=== PATIENT | male | born 1970 | race Caucasian/White ===

== ENCOUNTER 2016-06-09 17:38 | Emergency (ER) | payer OTHER ==
[~2016-06-09] VITALS: Ht 182.9 cm; Wt 84.8 kg
[~2016-06-09 17:38] MED LIST: ACYCLOVIR800 MG PO; AMOXICILLIN 50500 MG PO; ANTIVERT/2525 MG PO; APAP/BUTALBITAL1 TA1 PO; ASPIR-LOW81 MG PO; CIPRO 500MG TA500 MG PO; FLAGYL500 M1 PO; GABAPENTIN300 M1 PO; HYDROCODONE-APA1 TA2 PO; KEFLEX 500MG.500 MG PO; LORTAB 500 MG-71 TAB PO; MEDROL 4MG. DOSE4 MG PO; MELOXICAM15 MG PO; NEXIUM40 MG PO; NOMEDS *; NORCO 325 MG-51 TAB PO; PREDNISONE 20MG20 MG PO; RANEXA500 M1 PO; VICODIN 5/500 T1 TAB PO
[2016-06-09 18:00] LABS: URINE BILIRUBIN - DIPSTICK NEGATIVE (NEG); URINE BLOOD NEGATIVE (NEG)
[2016-06-09 18:11] LABS: HEMOGLOBIN 14.6 g/dL (14.1-18.0); LYMPH # 1.9 K/mm3 (0.7-4.5); LYMPH % 27.6 % (10-50)
--- NOTE | 2016-06-09 18:14 | Emergency Room Report ---
History of Present Illness Time Seen by [id number] Presenting Problem in Triage Pt arrived:Walked Presenting Problem:PT C/O LLQ ABD PAIN AND LOWER LEFT SIDED BACK PAIN X3 DAYS AND BURNING WITH URINATION Onset of symptoms date/time:/ or onset unknown for:MEDICAL HX UNKNOWN Treatment Prior to Arrival: [employer] Provided by: Sepsis Risk Assessment: Temp: 98.2 B/P: 135/71 MAP: 92 Pulse: 85 Resp: 16 Recent fever? N Clinical Suspician of Infection? N Mental Status: 1 - Regular (Normal Baseline) Sepsis Risk:Low Sepsis Risk Have you (or family members/close friends) recently traveled outside the [place]? N If Yes, where/when: Have you had exposure to infectious disease within the past month? N TB? Other? Specify: Comment The patient complains of LEFT lumbar back pain and LEFT lower quadrant pain. He says the back pain began first about 3 days ago at work. It increases with movement. He has a history of chronic back pain and takes Lortab 7.5 mg, but this pain is different. He has occasional tingling in his LEFT leg, which is not new. He has LEFT lower quadrant abdominal pain, but no vomiting or fever. He has chronic diarrhea since a cholecystectomy, unchanged. He had an episode of diverticulitis in November and says that this is not the same symptoms. Slight burning with urination, no gross hematuria. Urine seems darker than usual. The patient has a gastric sensitivity to nonsteroidal anti-inflammatory drugs but has no problem with intravenous Toradol. He does not have a true ALLERGY. He drove himself to the emergency department. ALLERGIES Coded Allergies: codeine (Mild, 09/17/15) meloxicam (From [facility]OBIC) (Mild, 09/17/15) ibuprofen (11/09/15) Home Medications Active Scripts HYDROCODONE/ACETAMINOPHEN (Hydrocodon-Acetaminoph 7.5-325) 1 TAB PO TID PRN pain #90 TAB Prov: 03/12/16 Reported Medications Aspirin (Aspir-Low) 81 MG PO DAILY #90 Gabapentin 800 MG PO TID #180 30 Days History Medical History General CAD? Yes Angina: No [place]: No Hypertension? No Hyperlipidemia? No CHF? No DVT? No PE? No COPD? Yes Asthma? Yes Anemia? No GERD? No Gastric ulcers? No GI Bleed? No Hernia? Yes Thyroid Problems? No Hypothyroidism? No CVA? No Seizures? No Diabetes? No Insulin Dependent: No Insulin Pump: No Home FSBS? No Renal Insuffiency? No End Stage Renal Disease? No UTI? No Stones? No BPH? No GB Disease: No Nephritic Syndrome? No Asplenia? No Hepatitis? No Sickle Cell Disease? No Arthritis? No Migraines? No Cataracts? No Glaucoma? No MRSA? No HIV? No TB? No Anxiety? No Depression? No Cancer? No More? No Immunization Hx DT/Tetanus Unknown Flu LAST YEAR Pneumonia NEVER Surgical Hx Previous Surgery?Y RIGHT LUNG (3 MOS OLD) GALLBLADDER BILAT INGUIENAL HERNIA T&A EAR TUBES HEART CATH Family History Family Hx Diabetes Yes CAD Yes Hypertension Yes Hyperlipidemia Yes Cancer Yes TB Yes Social History Smoking Hx Smoker: Current Every Day Smoker Tobacco: Yes Type Cigarettes Packs/day 1 1/2 - 2 Packs Alcohol Alcohol: No Review of Systems All Other Systems Reviewed and Negative Constitutional denies fever Respiratory denies cough, denies shortness of breath Cardiovascular denies chest pain Gastrointestinal abdominal pain, diarrhea, denies vomiting Genitourinary denies: frequency, hematuria. Physical Exam Vital Signs Vital Signs Date Time Temp Pulse Resp B/P Pulse O2 O2 Flow FiO2 Ox Delivery Rate 06/09 1916 98.1 93 16 145/80 100 06/09 1830 98.9 76 16 149/76 98 06/09 1744 98.2 85 16 135/71 98 General Appearance normal appearance, WD/WN Eye Exam - bilateral eye normal exam, bilateral eye PERRL, bilateral eye EOMI Ear, Nose, Throat hearing grossly normal, normal ENT inspection Neck normal inspection, non-tender, supple, full range of motion Respiratory Status Yes: trachea midline, chest symmetrical, non tender chest. No: respiratory distress. Lung Sounds bilateral: normal breath sounds, lungs clear. Cardiovascular normal exam, regular rate/rhythm, no peripheral edema, no gallop, no JVD, no murmur, no rub, normal peripheral pulses Peripheral Pulses Pulses normal Yes Gastrointestinal normal bowel sounds, normal exam, non tender, soft, no organomegaly Back normal inspection, no CVA tenderness, no vertebral tenderness Extremities non-tender, normal range of motion, normal inspection Neurologic alert, overhead irrigator II-XII nml as tested, normal exam, oriented x 3 Mental status normal mood/affect Skin intact, normal color, warm/dry Medical Decision Making LABS/Meds/Orders Pt receiving controlled substance in ED? No Caleb was queried for this patient? Yes Reference #: [id number] Comment 8 rxs. last rx 90 lortab 7.5mg on 05/13/16. Results/Orders Laboratory Tests 06/09/16 1800: Lipase 137 06/09/16 1800: Sodium 139, Potassium 4.0, Chloride 105, Carbon Dioxide 27, BUN 8, Creatinine 0.8, Estimated Creat Clear 138, Estimated GFR (MDRD) 104, Glucose 70 L, Calcium 8.4 L, Total Bilirubin 0.4, AST 15, ALT 24, Alkaline Phosphatase 68, Total Protein 6.5, Albumin 3.7, Globulin 2.8, Albumin/Globulin Ratio 1.3, WBC 6.9, RBC 4.77, Hgb 14.6, Hct 41.7 L, MCV 87.4, RDW 13.8, Plt Count 204, MPV 8.3, Gran % 63.4, Gran # 4.4, Lymphocytes % 27.6, Monocytes % 5.9, Eosinophils % 2.2, Basophils % 0.8, Lymphocytes # 1.9, Monocytes # 0.4, Eosinophils # 0.2, Basophils # 0.1, PUBS MCHC 34.9, MCH 30.5 06/09/161756: Urine Color YELLOW, Urine Appearance CLEAR, Urine pH 6.0, Ur Specific [place] 1.015, Urine Protein NEGATIVE, Urine Ketones NEGATIVE, Urine Blood NEGATIVE, Urine Nitrate NEGATIVE, Urine Bilirubin NEGATIVE, Urine Urobilinogen 0.2, Ur Leukocyte Esterase NEGATIVE, Urine WBC OCC, Urine Bacteria 2+, Urine Mucus 2+, Urine Glucose NEGATIVE Current Medication Orders Sig/Mary Ann Start time Last Medication Dose Route Stop Time Status Admin Ketorolac 30 MG ONCE ONE 06/09 1929 DCr Tromethamine IV 06/09 193 Sodium Chloride 10 ML PRN PRN 06/09 1800 AC IV 06/10 175 Orders Procedure Date/time Status DIET-NOTHING BY MOUTH 06/10 B Active LIPASE 06/09 1843 Complete CULTURE, URINE 06/[address] ABD/PELVIS REQ 06/09 175 Complete IV SALINE LOCK 06/09 175 Active URINALYSIS/COMPLETE 06/09 1750 Complete CBC WITH AUTO DIFF 01/01 1751 Complete CHEM 12 PROFILE 06/09 175 Complete XRAY/CT/US XRAY/CT/US CT abdomen, pelvis CT interpretation by discussed w/radiologist Comment Diverticulosis, no diverticulitis. No calculi. Moderate left-sided stool. Departure Departure Disposition DC Home or Self Care(routine) Clinical Impression Primary Impression: Low back pain Qualifiers: Chronicity: acute Back pain laterality: left Sciatica presence: without sciatica Qualified Code: M54.5 - Low back pain Secondary Impressions: Abdominal pain, left lower quadrant Condition STABLE Referrals Benny DUKE,Tayo Dooley (Family) Patient Instructions DI for Abdominal Pain-Adult, DI for Low Back Pain Additional Instructions Additional instructions for BACK PAIN: See your physician as soon as possible for further evaluation. Return immediately if back pain becomes intolerable, or if fever, numbness or weakness of your legs, loss of control of your bowels or bladder. Additional instructions for ABDOMINAL PAIN: See your physician as soon as possible for further evaluation. Return immediately if worsening abdominal pain, vomiting, shortness of breath, fever, vomiting of blood or abdominal distention. Prescriptions Current Visit Scripts Cyclobenzaprine Hcl (Flexeril) 5 MG PO TIDP PRN back pain or spasm #10 TAB ED Critical Care Critical Care No at 1932
--- NOTE | 2016-06-09 18:36 | RADIOLOGY REPORT PS360 ---
CT ABD PELVIS W/O CONTRAST COMPARISON: CT scan abdomen pelvis 11/09/2015 HISTORY: Left lower quadrant pain and left flank pain for 3 days TECHNIQUE: Multiaxial scans obtained from hemidiaphragms the pelvic floor and were performed without IV or oral contrast. Sagittal and coronal reformatted images were evaluated as well. FINDINGS: Scans through the lower chest show clear lower lung morris. The liver spleen and pancreas appear normal. The stomach is moderately distended with ingested food particles but otherwise is normal, there is been a previous cholecystectomy. The adrenal glands are normal. The kidneys are normal in size and there are no calculi and is no obstructive uropathy of either kidney. These small bowel appears grossly normal. The appendix is well-visualized and is normal. There is moderate amount stool in ascending and transverse colon and descending colon. There is prominent diverticulosis of the sigmoid colon but there is no definite evidence of diverticulitis as was noted on the previous study in November and 2015. The urinary bladder is partially decompressed and the prostate is normal. The lumbar spine and bony pelvis appear normal. IMPRESSION: Prominent diverticulosis of the sigmoid colon without evidence of diverticulitis, moderate amount of left-sided stool, no other significant abnormality noted.
[2016-06-09] MEDS ORDERED: FLEXERIL10 MG PO (19:31)
[2016-06-09 19:40] VITALS: BP 145/80
[2016-07-22] MEDS ORDERED: HYDROCODONE-APA1 TA2 PO ×2 (14:36→14:37)
[2016-07-30] MEDS ORDERED: GABAPENTIN800 MG PO (02:14)
[2016-07-31] MEDS ORDERED: NICOTINE PATCH;21 MG TD (12:29)
[2016-07-31] MEDS ORDERED: ASPIR-LOW81 MG PO (12:30)
[2016-07-31] MEDS ORDERED: EFFIENT10 M2 PO (12:31)
[2016-07-31] MEDS ORDERED: ATORVASTATIN 8080 MG PO (12:31)
[2016-07-31] MEDS ORDERED: BISOPROLOL 5MG T5 MG PO (12:32)
== END 2016-06-09 19:40 | disposition home or self-care (01) ==
LOC: ER 17:38
PROVIDERS: Emergency Medicine
DX: M54.5 Low back pain (principal); R10.32 Left lower quadrant pain; Z72.0 Tobacco use